=== PATIENT | female | born 1995 | race Caucasian/White ===

== ENCOUNTER 2017-10-14 12:49 | Emergency (ER) | payer SELFPAY ==
[~2017-10-14] VITALS: Ht 160 cm; Wt 63.5 kg
[2017-10-14] MEDS ORDERED: HYDROCODONE/APAP 5MG-325MG TAB PO ONE (13:30)
--- NOTE | 2017-10-14 14:16 | Diagnostic Imaging Report ---
PROCEDURE:KNEE LEFT THREE VIEWS COMPARISON:None. INDICATIONS:LEFT LOWER LATERAL ANKLE PAIN FINDINGS:3 views of the left knee show no displaced fracture or dislocation. Joint spaces are preserved. Soft tissues unremarkable. CONCLUSION:No acute bony abnormality. Dictated by: Fede Melendez M.D. on 10/14/2017 at 14:25 Electronically approved by: Fede Melendez M.D. on 10/14/2017 at 14:25
--- NOTE | 2017-10-14 14:19 | Diagnostic Imaging Report ---
PROCEDURE:ANKLE 3+ VIEWS LEFT INDICATION:Fall, pain COMPARISON:None. FINDINGS: 3 views of the left ankle show a minimally displaced oblique fracture of the lateral malleolus. The ankle mortise is symmetrically marginated. There is overlying soft tissue swelling laterally. CONCLUSION: Oblique minimally displaced fracture of the lateral malleolus. Dictated by: Fede Melendez M.D. on 10/14/2017 at 14:28 Electronically approved by: Fede Melendez M.D. on 10/14/2017 at 14:28
[2017-10-14 15:47] VITALS: BP 120/59
== END 2017-10-14 16:11 | disposition home or self-care (01) ==
LOC: ER 12:49
DX: S82.425A Nondisplaced transverse fracture of shaft of left fibula, initial encounter for closed fracture (principal); Y93.89 Activity, other specified; Y92.008 Other place in unspecified non-institutional (private) residence as the place of occurrence of the external cause
CPT/HCPCS: 93005; 99283

== ENCOUNTER 2017-10-16 13:08 | Emergency (ER) | payer SELFPAY ==
[~2017-10-16] VITALS: Ht 160 cm; Wt 63.5 kg
== END 2017-10-16 13:27 | disposition left against medical advice (07) ==
LOC: ER 13:09
DX: M79.672 Pain in left foot (principal)